=== PATIENT | male | born 1995 ===

== ENCOUNTER 2019-01-16 23:19 | Emergency (ER) | payer OTHER, BC ==
[~2019-01-16] VITALS: Ht 190.5 cm; Wt 89.4 kg
[~2019-01-16 23:19] MED LIST: MAGCIT300 PO
[2019-01-16] MEDS ORDERED: CITA20 PO (23:30)
[2019-01-16] MEDS ORDERED: VALA500 PO (23:30)
[2019-01-17] MEDS ORDERED: CEPH500 PO (01:48)
== END 2019-01-17 02:08 | disposition home or self-care (01) ==
LOC: ER 23:19
DX: S41.141A Puncture wound with foreign body of right upper arm, initial encounter (principal); Z88.0 Allergy status to penicillin; Z88.8 Allergy status to other drugs, medicaments and biological substances; Z79.899 Other long term (current) drug therapy; W45.8XXA Other foreign body or object entering through skin, initial encounter
CPT/HCPCS: 10120; 99283-25